=== PATIENT | female | born 1990 | race Caucasian/White ===

== ENCOUNTER 2018-03-10 10:19 | Emergency (ER) | payer OTHER ==
[~2018-03-10] VITALS: Ht 165.1 cm; Wt 104.3 kg
[~2018-03-10 10:19] MED LIST: PREN1TAB58 PO
[2018-03-10] MEDS ORDERED: IV NORMAL SALINE 1,000ML 1,000 ML IV SCH (10:40)
[2018-03-10 10:57] LABS: BASO % 0 % (0-3); EOS # 0.1 x10^3/uL (0.0-0.7); EOS % 0 % (0-3); HEMATOCRIT 53.5 % (36.0-47.0); HEMOGLOBIN 18.2 g/dL (12.0-15.5); LYMPH # 0.6 x10^3/uL (1.0-4.8); LYMPH % 4 % (24-48); MEAN CORPUSCULAR HEMOGLOBIN 30 pg (25-35); MEAN CORPUSCULAR HGB CONC 34 g/dL (31-37); MEAN CORPUSCULAR VOLUME 89 fL (79-100); MONO # 0.5 x10^3/uL (0.0-1.1); MONO % 4 % (0-9); NEUT # 13.5 x10^3uL (1.8-7.7); NEUT % 92 % (31-73); PLATELET COUNT 241 x10^3/uL (140-400); RED BLOOD COUNT 6.02 x10^6/uL (3.50-5.40); RED CELL DISTRIBUTION WIDTH 14.6 % (11.5-14.5); WHITE BLOOD COUNT 14.7 x10^3/uL (4.0-11.0)
[2018-03-10] MEDS ORDERED: ONDANSETRON PF 4 MG/2 ML VIAL. IV ONE (11:10)
[2018-03-10] MEDS ORDERED: KETOROLAC 30 MG/ML VIAL. IV ONE (11:10)
[2018-03-10 11:11] LABS: ALBUMIN 4.2 g/dL (3.4-5.0); ALBUMIN/GLOBULIN RATIO 1.2 (1.0-1.7); CALCIUM 8.9 mg/dL (8.5-10.1); CREATININE 0.9 mg/dL (0.6-1.0); GFR 74.6; POTASSIUM 4.3 mmol/L (3.5-5.1); TOTAL BILIRUBIN 0.6 mg/dL (0.2-1.0); TOTAL PROTEIN 7.8 g/dL (6.4-8.2)
--- NOTE | 2018-03-10 11:24 | PHYS DOC ---
Past History Past Medical History: Abscess, Other Past Surgical History: Other Smoking: Cigarettes, Less than 1pk/day Alcohol Use: None Drug Use: None Adult General Chief Complaint Chief Complaint: NAUSEA/VOMITING/DIARRHEA HPI HPI Patient is a 27 year old female who presents with appearing of abdominal pain and nausea and vomiting since 3 AM today. She complaining of upper abdominal pain as a constant pain to radiation and 6-7 episodes of nonbloody vomiting without diarrhea and urinary symptom. Patient denies and sick contact. Patient rated her pain 10 out of 10 and crying of pain. Review of Systems Review of Systems Constitutional: Denies fever or chills [] Eyes: Denies change in visual acuity, redness, or eye pain [] HENT: Denies nasal congestion or sore throat [] Respiratory: Denies cough or shortness of breath [] Cardiovascular: No additional information not addressed in HPI [] GI: Reports abdominal pain, nausea, vomiting, denies bloody stools or diarrhea [ ] : Denies dysuria or hematuria [] Musculoskeletal: Denies back pain or joint pain [] Integument: Denies rash or skin lesions [] Neurologic: Denies headache, focal weakness or sensory changes [] Endocrine: Denies polyuria or polydipsia [] All other systems were reviewed and found to be within normal limits, except as documented in this note. Current Medications Current Medications Current Medications Medications (Trade) Dose Ordered Sig/Rosi Start Time Stop Time Status Last Admin Dose Admin Ketorolac Tromethamine (Toradol 30mg Vial) 30 mg 1X ONCE 03/10/18 11:10 03/10/18 11:11 03/10/18 10:58 30 MG Ondansetron HCl (Zofran) 4 mg 1X ONCE 03/10/18 11:10 03/10/18 11:11 03/10/18 10:57 4 MG Sodium Chloride 1,000 ml @ 1,000 mls/hr Q1H 03/10/18 10:40 03/10/18 11:39 03/10/18 10:55 1,000 MLS/HR Allergies Allergies Allergies Coded Allergies Type Severity Reaction Last Updated Verified No Known Drug Allergies 01/21/14 No Physical Exam Physical Exam Constitutional: Well developed, well nourished, no acute distress, non-toxic appearance. [] HENT: Normocephalic, atraumatic, bilateral external ears normal, oropharynx moist, no oral exudates, nose normal. [] Eyes: PERRLA, EOMI, conjunctiva normal, no discharge. [] Neck: Normal range of motion, no tenderness, supple, no stridor. [] Cardiovascular:Heart rate regular rhythm, no murmur [] Lungs & Thorax: Bilateral breath sounds clear to auscultation [] Abdomen: Bowel sounds normal, soft, no tenderness, no masses, no pulsatile masses. [] Skin: Warm, dry, no erythema, no rash. [] Back: No tenderness, no CVA tenderness. [] Extremities: No tenderness, no cyanosis, no clubbing, ROM intact, no edema. [] Neurologic: Alert and oriented X 3, normal motor function, normal sensory function, no focal deficits noted. [] Psychologic: Affect normal, judgement normal, mood normal. [] Current Patient Data Lab Results Laboratory Tests Test 03/10/18 10:40 White Blood Count 14.7 x10^3/uL (4.0-11.0) H Red Blood Count 6.02 x10^6/uL (3.50-5.40) H Hemoglobin 18.2 g/dL (12.0-15.5) H Hematocrit 53.5 % (36.0-47.0) H Mean Corpuscular Volume 89 fL (79-100) Mean Corpuscular Hemoglobin 30 pg (25-35) Mean Corpuscular Hemoglobin Concent 34 g/dL (31-37) Red Cell Distribution Width 14.6 % (11.5-14.5) H Platelet Count 241 x10^3/uL (140-400) Neutrophils (%) (Auto) 92 % (31-73) H Lymphocytes (%) (Auto) 4 % (24-48) L Monocytes (%) (Auto) 4 % (0-9) Eosinophils (%) (Auto) 0 % (0-3) Basophils (%) (Auto) 0 % (0-3) Neutrophils # (Auto) 13.5 x10^3uL (1.8-7.7) H Lymphocytes # (Auto) 0.6 x10^3/uL (1.0-4.8) L Monocytes # (Auto) 0.5 x10^3/uL (0.0-1.1) Eosinophils # (Auto) 0.1 x10^3/uL (0.0-0.7) Basophils # (Auto) 0.0 x10^3/uL (0.0-0.2) EKG EKG [] Radiology/Procedures Radiology/Procedures [address] [address] IMAGING REPORT Signed PATIENT: CAROL MARQUEZ ACCOUNT: [id number] : 1990 LOCATION: ER AGE: 27 SEX: F EXAM STATUS: REG ER ORD. PHYSICIAN: ORLANDO GORDON MD REASON: nausea and vomiting and epigastric pain PROCEDURE: ABDOMEN LTD ABDOMEN LTD History: Nausea, vomiting, epigastric pain Comparison: None. Findings: Multiple sonographic images of the abdomen are submitted. Hepatic echotexture is within normal limits. There is a hyperechoic lesion of the right lobe of liver about 2 x 3.4 x 2.2 cm in size. Right kidney measured 11 x 5.5 x 5.3 cm, no hydronephrosis. No free fluid is demonstrated. There is segmental visualization of the inferior vena cava. Pancreas is not well-visualized due to bowel gas. Gallbladder is present without intraluminal abnormality, wall thickening, pericholecystic fluid. Common bile duct is within normal limits at 0.2 cm. Impression: 1. There is a hyperechoic lesion of the right lobe of the liver, nonspecific although most likely consideration a hemangioma. 2. There is no abnormality of the gallbladder. Pancreas is not well-visualized due to bowel gas. Electronically signed by: Yamilka Cramer MD (03/10/2018 12:21 PM) [id number] DICTATED AND SIGNED BY: YAMILKA CRAMER MD DATE: 03/10/18 1219 CC: ORLANDO GORDON MD; NICKO JADE MD ~ Course & Med Decision Making Course & Med Decision Making Pertinent Labs reviewed. (See chart for details) Evaluation of patient in ER showed 27-year-old male patient with complaining of multiple episodes of nausea and vomiting. Patient treated with IV fluid and Zofran and Toradol and felt better and tolerated oral intake. Labs and gallbladder ultrasound was unremarkable. Patient had liver hemangioma. Patient instructed to follow up with primary care physician and take liquids diarrhea today. Dragon Disclaimer Dragon Disclaimer This electronic medical record was generated, in whole or in part, using a voice recognition dictation system. Departure Departure: Impression: Primary Impression: Acute gastritis Additional Impressions: Dehydration Liver hemangioma Tobacco abuse Tobacco abuse counseling Disposition: HOME, SELF-CARE (1237) Condition: IMPROVED Referrals: NICKO JADE MD (PCP) Patient Instructions: Dehydration, Adult, Gastritis, Adult, Nausea and Vomiting Additional Instructions: Drink plenty of liquids Follow-up with your primary care physician in 3-5 days Return to ER if not getting better Scripts Naproxen (NAPROSYN) 500 Mg Tablet 1 TAB PO BID, #20 TAB Prov: ORLANDO GORDON MD 03/10/18 Ondansetron (ZOFRAN ODT) 4 Mg Tab.rapdis 1 TAB SL Q8HRS, #15 TAB Prov: ORLANDO GORDON MD 03/10/18 Problem Qualifiers ORLANDO GORDON MD Mar 10, 2018 11:24
[2018-03-10 12:01] LABS: BILIRUBIN,URINE NEG (NEG); CLARITY,URINE CLOUDY; COLOR,URINE AMBER; GLUCOSE,URINE NEG (NEG); NITRITE,URINE NEG (NEG); UROBILINOGEN,URINE 0.2 mg/dL (0.2 mg/dL)
[2018-03-10 12:02] LABS: BACTERIA,URINE MOD /HPF (0-FEW); RBC,URINE RARE /HPF (0-2); SQUAMOUS EPITHELIAL CELL,UR MOD /LPF
--- NOTE | 2018-03-10 12:25 | RAD ---
ABDOMEN LTD History: Nausea, vomiting, epigastric pain Comparison: None. Findings: Multiple sonographic images of the abdomen are submitted. Hepatic echotexture is within normal limits. There is a hyperechoic lesion of the right lobe of liver about 2 x 3.4 x 2.2 cm in size. Right kidney measured 11 x 5.5 x 5.3 cm, no hydronephrosis. No free fluid is demonstrated. There is segmental visualization of the inferior vena cava. Pancreas is not well-visualized due to bowel gas. Gallbladder is present without intraluminal abnormality, wall thickening, pericholecystic fluid. Common bile duct is within normal limits at 0.2 cm. Impression: 1. There is a hyperechoic lesion of the right lobe of the liver, nonspecific although most likely consideration a hemangioma. 2. There is no abnormality of the gallbladder. Pancreas is not well-visualized due to bowel gas. Electronically signed by: Noe Cramer MD (03/10/2018 12:21 PM) [facility]
[2018-03-10 12:26] VITALS: BP 114/54
[2018-03-10] MEDS ORDERED: ONDA4TAB10 SL (12:39)
[2018-03-10] MEDS ORDERED: NAPR-683 PO (12:39)
== END 2018-03-10 12:52 | disposition home or self-care (01) ==
LOC: ER 10:19
DX: K29.00 Acute gastritis without bleeding (principal); E86.0 Dehydration; D18.09 Hemangioma of other sites; F17.210 Nicotine dependence, cigarettes, uncomplicated; Z71.6 Tobacco abuse counseling
CPT/HCPCS: 36415; 76705; 80053; 81001; 81025; 83690; 85025; 87086; 96361; 96374; 96375; 99285; J1885; J2405; J7030